=== PATIENT | female | born 1955 | race Caucasian/White ===

== ENCOUNTER 2017-03-16 11:00 | Emergency (ER) | payer BC ==
[~2017-03-16] VITALS: Ht 170.2 cm; Wt 58.1 kg
--- NOTE | 2017-03-16 11:33 | NUR ---
DR SHIN AT THE BEDSIDE FOR EVAL AND EXAM.
[2017-03-16] MEDS ORDERED: IBUPROFEN 800 MG TABLET PO ONE (11:45)
[2017-03-16] MEDS ORDERED: TDAP DIPH,PERTUSS,TET VAC/PF 0.5 ML DISP.SYRIN IM ONE ×2 (11:45→11:59)
[2017-03-16] MEDS ORDERED: LIDOCAINE HCL 2% 20 ML VIAL TP ONE (11:45)
[2017-03-16] MEDS ORDERED: SODIUM BICARBONATE 4.2 % (NEUT) 5 ML VIAL TP ONE (11:45)
[2017-03-16] MEDS ORDERED: LET TOPICAL SOLUTION 8 ML UDC TOP ONE (11:45)
[2017-03-16] MEDS ORDERED: LET TOPICAL SOLUTION 8 ML UDC ONE ×2 (11:51→11:58)
[2017-03-16] MEDS ORDERED: LIDOCAINE HCL 2% 20 ML VIAL ONE (11:58)
[2017-03-16] MEDS ORDERED: IBUPROFEN 800 MG TABLET ONE (11:59)
[2017-03-16] MEDS ORDERED: HYDROCODONE/APAP 5-325MG TABLET PO ONE (13:15)
[2017-03-16] MEDS: NEOMY/BACITRA/POLYMYXIN B OINT UD PACKET TP ONE ×2 (13:27→13:35)
[2017-03-16] MEDS ORDERED: NEOMY/BACITRA/POLYMYXIN B OINT UD PACKET TP ONE (13:29)
[2017-03-16 13:43] VITALS: BP 129/77
[2017-03-16] MEDS ORDERED: HYDROCODONE/APAP 5-325MG TABLET ONE (13:43)
--- NOTE | 2017-03-16 13:44 | NUR ---
Patient discharged to home in stable conditon. Written and verbal after care instructions given. Patient verbalizes understanding of instructions.
== END 2017-03-16 13:46 | disposition home or self-care (01) ==
LOC: ER 11:00
DX: S91.312A Laceration without foreign body, left foot, initial encounter (principal); E03.9 Hypothyroidism, unspecified; W20.8XXA Other cause of strike by thrown, projected or falling object, initial encounter; Y93.89 Activity, other specified; Y92.9 Unspecified place or not applicable; Y99.9 Unspecified external cause status
CPT/HCPCS: 90715; A4217; A4663; J3490